=== PATIENT | female | born 1975 | race Two or more races ===

== ENCOUNTER 2023-06-01 07:36 | Outpatient (CLI) | payer OTHER | END 2023-06-01 07:40 | disposition home or self-care (01) | LOC: SONOGRAMA 07:36 | PROVIDERS: ATTEND Pathology Anatomic Pathology & Clinical Pathology | DX: E04.2 Nontoxic multinodular goiter (principal); D44.0 Neoplasm of uncertain behavior of thyroid gland ==

== ENCOUNTER 2023-10-30 10:05 | Outpatient (CLI) | payer OTHER | END 2023-10-30 10:09 | disposition home or self-care (01) | LOC: SONOGRAMA 10:05 | PROVIDERS: ATTEND Pathology Anatomic Pathology & Clinical Pathology | DX: E04.2 Nontoxic multinodular goiter (principal) ==